=== PATIENT | male | born 1970 ===

== ENCOUNTER 2025-02-23 17:53 | Emergency (ER) | payer OTHER ==
[~2025-02-23] VITALS: Ht 167.6 cm; Wt 67.0 kg
[2025-02-23 18:55] LABS: APPEARANCE,URINE CLEAR (CLEAR); GLUCOSE, URINE (UA) NEGATIVE (NEGATIVE); LEUKOCYTE ESTERASE ,URINE NEGATIVE (NEGATIVE); NITRATE,URINE NEGATIVE (NEGATIVE); OCCULT BLOOD,URINE NEGATIVE (NEGATIVE); SPECIFIC GRAVITIY, URINE 1.017 (1.003-1.030)
[2025-02-23] MEDS: FAMOTIDINE 20 MG TABLET PO ONE (19:28)
[2025-02-23 19:29] LABS: PLATELET COUNT (AUTO) 300 K/uL (150-450); RED BLOOD CELL COUNT(AUTO) 5.11 MIL/uL (4.50-5.90); RED CELL DISTRIBUTION WIDTH 14.5 % (11.5-14.5); WHITE BLOOD COUNT (AUTO) 8.2 K/uL (4.5-11.0)
[2025-02-23 19:37] LABS: CALCIUM, TOTAL 8.8 mg/dL (8.8-10.5); CREATININE 1.16 mg/dL (0.60-1.30); GLOMERULAR FILTR. RATE CALC > 60 mL/min (>60); GLUCOSE,RANDOM 152 mg/dL (70-110); SODIUM SERUM 136 mmol/L (136-145); UREA NITROGEN, BLOOD 24 mg/dL (7-18)
[2025-02-23 19:46] LABS: TROPONIN I-HIGH SENSITIVITY 4 ng/L (<76)
[2025-02-23 20:07] LABS: ASPARTATE AMINOTRANSFERASE 8.0 U/L (15-37); TOTAL PROTEIN, SERUM 7.6 g/dL (6.4-8.2)
[2025-02-23] MEDS ORDERED: IOHEXOL 300 MG/ML 100 ML VIAL ONE (21:41)
[2025-02-23] MEDS ORDERED: SODIUM CHLORIDE 0.9% 100 ML ONE (21:41)
[2025-02-24] MEDS: PB/HYOSCY/ATR/SCOP/LIDO/MAALOX 55 ML BOTTLE PO ONE (01:05)
[2025-02-24 02:00] VITALS: BP 123/80; PULSE 75; RESP 15; O2SAT 97
== END 2025-02-24 02:07 | disposition home or self-care (01) ==
LOC: EMS 17:53
DX: R10.13 Epigastric pain (principal); E11.9 Type 2 diabetes mellitus without complications; I10 Essential (primary) hypertension; Z90.49 Acquired absence of other specified parts of digestive tract
CPT/HCPCS: 99285; 74177; 80048; 80076; 81003; 83690; 84484; 85025; 36415; 93005; 76705; J7050; Q9967